=== PATIENT | male | born 1970 | race Caucasian/White ===

== ENCOUNTER 2020-05-20 10:30 | Day surgery (SDC) | payer OTHER ==
--- NOTE | 2020-05-19 13:38 | PCM.PREANE ---
<Kira Rubio J - Last Filed: 05/19/20 13:32> Preanesthetic Assessment - Procedure Proposed Procedure: Right SVA with Rotator Cuff Repair, biceps tenotomy, possible labral repair, and subacromial decompression. 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 - Imaging/EKG Impressions: EKG: SR rate=79, diffuse borderline T wave abnormalities, consider RVH. - Allergies Allergies/Adverse Reactions: Allergies Allergy/AdvReac Type Severity Reaction Status Date / Time No Known Allergies Allergy Verified 05/19/20 14:49 - Anesthesia Plan Pre-Op Medication Ordered: None - Acknowledgements Anesthesia Type Planned: General Anesthesia (Right ISB under US guidance for post operative pain control requested by Dr. Dent.) Pt an Appropriate Candidate for the Planned Anesthesia: Yes Alternatives and Risks of Anesthesia Discussed w Pt/Guardian: Yes Pt/Guardian Understands and Agrees with Anesthesia Plan: Yes PreAnesthesia Questionnaire - HOME MEDS Home Medications: Home Meds Acyclovir 400 mg PO DAILY 04/23/20 [History] Losartan Potassium 100 mg PO DAILY 04/23/20 [History] Cholecalciferol (Vitamin D3) [Vitamin D3] 1,000 unit PO DAILY 05/19/20 [History] Acetaminophen/HYDROcodone [[place] 325-5 MG] 1 - 2 tab PO Q6H PRN #30 tablet 05/20/20 [Rx] Cyclobenzaprine [Flexeril] 10 mg PO BID PRN #20 tab 05/20/20 [Rx] <Francisco Block - Last Filed: 05/20/20 10:54> Preanesthetic Assessment - Anesthesia/Transfusion/Family Hx Anesthesia History: Prior Anesthesia Without Reaction Family History of Anesthesia Reaction: No Transfusion History: No Prior Transfusion(s) Intubation History: Unknown - Review of Systems General: No Symptoms Pulmonary: No Symptoms Cardiovascular: No Symptoms Gastrointestinal: No Symptoms Neurological: Numbness (both hands) Other: Reports: Neck Pain ("it is always sore") - Physical Assessment NPO Status Time: 00:00 Height: 1.83 m Weight: 89.811 kg ASA Class: 2 Mental Status: Alert & Oriented x3 Dentition: Reports: Implants (top teeth, screw in lower jaw) Thyro-Mental Finger Breadths: 3 Mouth Opening Finger Breadths: 3 ROM/Head Extension: Full - Lab Values: Laboratory Last Values SARS-CoV-2 (PCR) Not detected (NOT DETECT) 05/17/20 09:30 MRSA (PCR) Negative 05/18/20 13:36 - Blood Blood Available: No Product(s) Available: None - Anesthesia Plan Pre-Op Medication Ordered: None - Acknowledgements Anesthesia Type Planned: General Anesthesia, Regional Block (right ISNB for post-op pain control) Pt an Appropriate Candidate for the Planned Anesthesia: Yes Alternatives and Risks of Anesthesia Discussed w Pt/Guardian: Yes Pt/Guardian Understands and Agrees with Anesthesia Plan: Yes PreAnesthesia Questionnaire Gastrointestinal History: Reports: GERD - SUBSTANCE USE Tobacco Use Status *Q: Never Tobacco User Tobacco Use Within Last Twelve Months: No Second Hand Smoke Exposure: No Days Per Week of Alcohol Use: 1 Number of Drinks Per Day: 7 Total Drinks Per Week: 7 Recreational Drug Use History: No - CURRENT (IN HOUSE) MEDS Current Meds: Current Medications Epinephrine HCl (Adrenalin) 3 mg IRR ONETIME RAHAT Stop: 05/20/20 23:00 Lactated Ringer's (Ringers, Lactated) 1,000 mls @ 125 mls/hr IV ASDIRECTED RAHAT Stop: 05/20/20 23:00 Lidocaine/Sodium Bicarbonate (Buffered Lidocaine 1% In Ns 8.4%) 0.25 ml IDERM ONETIME PRN PRN Reason: Prior to IV Start Stop: 05/20/20 18:00 Sodium Chloride (Saline Flush) 10 ml FLUSH ASDIRECTED PRN PRN Reason: Keep Vein Open Stop: 05/20/20 18:00 Discontinued Medications Epinephrine HCl (Adrenalin) Confirm Administered Dose 1 mg .ROUTE .STK-MED ONE Stop: 05/20/20 06:16 Lidocaine HCl (Xylocaine-Mpf 1%) Confirm Administered Dose 2 mls @ as directed .ROUTE .STK-MED ONE Stop: 05/20/20 06:16 Ropivacaine (Naropin 0.5%) Confirm Administered Dose 30 ml .ROUTE .STK-MED ONE Stop: 05/20/20 06:17
[~2020-05-20 10:30] MED LIST: EPINEPHrine 1 MG/ML 30 ML MDV IRR SCH; EPINEPHrine 1 MG/ML SDV ONE; Lactated Ringers 1,000 ML IV SCH; Lidocaine 1% 2 ML ONE; Lidocaine 1%/Sod Bicarbonate in NS 8.4% 1 ML Syringe IDERM PRN; Ropivacaine 0.5% 5 MG/ML 30 ML SDV ONE; Sodium Chloride 0.9% 10 ML Syringe FLUSH PRN
[2020-05-20] MEDS ORDERED: Lidocaine 1% 4 ML ONE ×2 (11:06→11:52)
[2020-05-20] MEDS ORDERED: fentaNYL 100 MCG/2 ML SDV ONE ×2 (11:06→12:21)
[2020-05-20] MEDS ORDERED: Propofol 200 MG/20 ML SDV ONE ×2 (11:06→11:52)
[2020-05-20] MEDS ORDERED: Midazolam 1 MG/ML 2 ML SDV ONE (11:08)
[2020-05-20] MEDS ORDERED: ceFAZolin 1 GM Vial ONE (11:52)
[2020-05-20] MEDS ORDERED: Rocuronium 50 MG/5 ML Vial ONE (11:52)
[2020-05-20] MEDS ORDERED: Lactated Ringers 1,000 ML ONE (11:52)
--- NOTE | 2020-05-20 12:04 | PCM.PRNOTE ---
<Jose Vazquez - Last Filed: 05/20/20 11:48> - Free Text/Narrative Note: Consented to patient for a left interscalene block. A time out was done at 1117. The brachial plexus was located via ultrasound. The patient was mechanic's assistant with chlorhexidine and draped with sterile towels using sterile technique. The patient was given 2 mg of versed, 50 mcg of fentanyl, and 40 mg of propofol IV intermittently from RN at my direction, patient remained verbal and cooperative throughout, comfortably sedated. VSS, SV on 2L nasal cannula, SpO2 remained greater than 90% throughout. Next a skin wheel was made with 1% lidocaine at site of needle insertion. The brachial plexus was then located with ultrasound and a 22 gauge 2 inch stemiplex needle inserted using in plane ultrasound guidance to placement of brachial plexus nerve bundle. At this time aspiration reveled no heme no dysesthesia and s0 ml of 0.5% ropivacaine with 1:200,000 epinephrine was injected intermittently with aspiration with spread around the plexus. Patient with dense motor and sensory block 15 minutes post procedure, no complaints at this time. Images on ultrasound were great quality. <Osmin Diaz - Last Filed: 05/20/20 12:58> - Free Text/Narrative Note: 30 mL 0.5% ropivicaine with 1:200,000 epinephrine comprised admixture. StimiPlex needle was utilized although stimulation was not required under US guidance.
[2020-05-20] MEDS ORDERED: Ketorolac 30 MG/ML SDV ONE (12:44)
[2020-05-20] MEDS ORDERED: Ondansetron 4 MG/2 ML SDV ONE (12:44)
[2020-05-20] MEDS ORDERED: Dexamethasone 4 MG/ML 5 ML MDV ONE (12:44)
[2020-05-20] MEDS ORDERED: Ondansetron 4 MG/2 ML SDV IVPUSH PRN (12:59)
[2020-05-20] MEDS ORDERED: HYDROmorphone 0.5 MG/0.5 ML Syringe IVPUSH PRN (12:59)
[2020-05-20] MEDS ORDERED: fentaNYL 100 MCG/2 ML SDV IVPUSH PRN (12:59)
--- NOTE | 2020-05-20 14:03 | PCM.POSTAN ---
POST ANESTHESIA ASSESSMENT - MENTAL STATUS Mental Status: Alert, Oriented - VITAL SIGNS Vital Signs: Last Vital Signs Temp 36.7 C 05/20/20 10:35 Pulse 82 05/20/20 11:40 Resp 15 05/20/20 11:40 BP 125/98 H 05/20/20 11:40 Pulse Ox 100 05/20/20 11:40 - RESPIRATORY Respiratory Status: Respiratory Rate WNL, Airway Patent, O2 Saturation Stable - CARDIOVASCULAR CV Status: Pulse Rate WNL, Blood Pressure Stable - GASTROINTESTINAL GI Status: No Symptoms - PAIN Pain Score: 0 - POST OP HYDRATION Hydration Status: Adequate & Stable - OBSERVATIONS Free Text/Narrative:: Routine extubation in OR without event. HOB > 30 degrees with transfer to recovery and handoff to Jessica Campuzano RN. VSS, SV, DELAROSA, FAC, CTAB. No concerns at this time. 0/10 pain - patient states, "It would probably kill a normal man, but I'm fine."
--- NOTE | 2020-05-20 14:58 | PCM48HPAN ---
Post Anesthesia Note - EVALUATION WITHIN 48HRS OF ANESTHETIC Vital Signs in Normal Range: Yes Patient Participated in Evaluation: Yes Respiratory Function Stable: Yes Airway Patent: Yes Cardiovascular Function Stable: Yes Hydration Status Stable: Yes Pain Control Satisfactory: Yes Nausea and Vomiting Control Satisfactory: Yes Mental Status Recovered: Yes Vital Signs: Last Vital Signs Temp 36.1 C 05/20/20 14:50 Pulse 61 05/20/20 14:50 Resp 12 05/20/20 14:50 BP 127/95 H 05/20/20 14:50 Pulse Ox 98 05/20/20 14:50 - COMMENTS/OBSERVATIONS Free Text/Narrative:: Routine recovery post shoulder surgery. VSS, SV, DELAROSA, FAC, CTAB, 0/10 pain. No concerns at this time.
--- NOTE | 2020-05-24 17:33 | PCM.OPNOTE ---
- General Post-Op/Procedure Note Date of Surgery/Procedure: 05/20/20 Operative Procedure(s): right shoulder video arthroscopy with rotator cuff repair, subacromail decompression, biceps tenotomy, superior labral repair and extensive debridement Pre Op Diagnosis: right shoulder rotator cuff tear with superior labral tear with biceps tendinopathy and subacromial impingement Post-Op Diagnosis: Same Primary Surgeon: Ruslan Dent Anesthesia Provider: Osmin Diaz Neurosurgical Nurse: Sunita Ybarra in mLs: 5 Complications: None Condition: Good
--- NOTE | 2020-05-27 10:48 | OR ---
DATE OF OPERATION: 05/20/2020 SURGEON: Ruslan Dent MD OPERATION PERFORMED: Right shoulder video arthroscopy with rotator cuff repair, subacromial decompression, biceps tenotomy, superior labral repair and extensive debridement. PREOPERATIVE DIAGNOSIS: Right shoulder rotator cuff tear with superior labral tear with biceps tendinopathy and subacromial impingement. POSTOPERATIVE DIAGNOSIS: Right shoulder rotator cuff tear with superior labral tear with biceps tendinopathy and subacromial impingement. ANESTHESIA PROVIDER: Osmin Diaz. ELECTROENCEPHALOGRAM TECHNOLOGIST: Sunita Ybarra PA-C. ESTIMATED BLOOD LOSS: 5 mL. COMPLICATIONS: None. CONDITION: Stable. ANESTHESIA TECHNIQUE: General endotracheal intubation with regional interscalene block. DESCRIPTION OF PROCEDURE: The patient was identified in the preoperative holding area. Proper site was marked and identified by the surgeon. The patient was taken back to the operating theater where after adequate anesthesia, the patient was placed in the lazy left lateral decubitus position. Wedge was placed posteriorly. All bony prominences well padded. Right upper extremity was then sterilely prepped and draped in the usual sterile fashion. OR time-out was performed. Patient received 2 g IV Ancef. 12 pounds of traction was applied to the right upper extremity. Standard posterior incision was made. The scope trocar was introduced into the glenohumeral joint. The patient then had an anterior portal created from an outside-in technique using a spinal needle. The patient's subscapularis tendon was intact. The patient was noted to have a superior labral tear with significant biceps tendinopathy and fraying. At this time, a biceps tenotomy was performed and I placed 1 Arthrex 2.7 mm PushLock anchor in the superior labrum to repair the type 2 SLAP tear. Subscapularis tendon was intact. The patient was noted to have a tear of the supraspinatus tendon. There was no chondromalacia changes noted in the rest. The labrum was intact. Attention was turned to the subacromial space. At this time, the patient was noted to have a large amount of bursitis as well as tissue there. A significant extensive debridement was then done in the subacromial space as well as we did a debridement of the synovitis in the joint as well. The tear was identified and a good bony bleeding bed was then used with resector and a 4-0 full-radius tiffanie of the tear site. Two [place] medial row anchors all suture anchors were then placed and the 12 limbs of suture were passed through the tendon in similar technique all the way from anterior to posterior. At this time, all 12 suture limbs were brought out laterally, 6 were brought anterior and 6 were brought posterior for cross beauchamp repair fashion with a good conversion of the tear and good compression. The suture limbs were then cut. A 4-0 full-radius tiffanie was then used for acromioplasty of the undersurface of the acromion back to a smooth border of the posterior portion as the patient had a type 2 acromion. It was found to be an adequate repair. Excess saline was drained from the shoulder. 3- 0 nylon suture was used for closure of the skin. The patient was placed in a pillow sling and a sterile soft dressing and sent to PACU in stable condition. ANESTHESIA: AIRANI /[id number]
== END 2020-05-20 15:53 | disposition home or self-care (01) ==
LOC: JD.SDS 10:30
PROVIDERS: ATTEND Orthopaedic Surgery
DX: M75.101 Unspecified rotator cuff tear or rupture of right shoulder, not specified as traumatic (principal); S43.431A Superior glenoid labrum lesion of right shoulder, initial encounter; M25.811 Other specified joint disorders, right shoulder; M75.51 Bursitis of right shoulder; M65.811 Other synovitis and tenosynovitis, right shoulder; I10 Essential (primary) hypertension; K21.9 Gastro-esophageal reflux disease without esophagitis; Z01.812 Encounter for preprocedural laboratory examination; Z20.828 Contact with and (suspected) exposure to other viral communicable diseases
CPT/HCPCS: 29807; 29826; 29827; 87635; 87641; C1713; J0171; J0690; J1100; J1885; J2001; J2250; J2405; J2704; J2795; J3010; J7120; 01630; 64415; U0002

== ENCOUNTER 2023-08-16 10:26 | Day surgery (SDC) | payer OTHER ==
[~2023-08-16 10:26] MED LIST changes: -EPINEPHrine 1 MG/ML 30 ML MDV IRR SCH; -EPINEPHrine 1 MG/ML SDV ONE; -Lidocaine 1% 2 ML ONE; -Lidocaine 1%/Sod Bicarbonate in NS 8.4% 1 ML Syringe IDERM PRN; -Ropivacaine 0.5% 5 MG/ML 30 ML SDV ONE; +Sodium Chloride 0.9% 10 ML Syringe FLUSH SCH
[2023-08-16] MEDS ORDERED: Lidocaine 1% 4 ML ONE (11:17)
[2023-08-16] MEDS ORDERED: Midazolam 1 MG/ML 2 ML SDV ONE (11:17)
[2023-08-16] MEDS ORDERED: Propofol 200 MG/20 ML SDV ONE (11:17)
== END 2023-08-16 13:15 | disposition home or self-care (01) ==
LOC: JD.SDS 10:26
PROVIDERS: ATTEND Specialist
DX: Z12.11 Encounter for screening for malignant neoplasm of colon (principal); I10 Essential (primary) hypertension; E78.5 Hyperlipidemia, unspecified; K21.9 Gastro-esophageal reflux disease without esophagitis; Z72.0 Tobacco use; Z79.899 Other long term (current) drug therapy; Z98.890 Other specified postprocedural states
CPT/HCPCS: 45378; J2250; J2704; J7120; J3490